=== PATIENT | female | born 1975 | race Caucasian/White ===

== ENCOUNTER → 2020-12-30 | Outpatient (CLI) | payer SELFPAY ==
--- NOTE | 2020-12-30 14:44 | Diagnostic Imaging Report ---
Indication: Axillary line rib pain 11 days after injury. Findings: There is no lung contusion, pneumothorax or hemothorax. There is no free air beneath the diaphragm and the right lung is clear. Multiple oblique radiographs of the right ribs showed no suspicious cortical lucency, step-off or periosteal reaction. No findings of an acute or healing rib fracture. Impression: Unremarkable right rib series. Dictated by: Dictated on workstation # [id number]
== END ==
LOC: RAD 13:26
PROVIDERS: ATTEND Family Medicine
DX: S29.9XXA Unspecified injury of thorax, initial encounter (principal); X58.XXXA Exposure to other specified factors, initial encounter
CPT/HCPCS: 71100